=== PATIENT | male | born 1975 | race Caucasian/White ===

== ENCOUNTER → 2021-01-21 | Outpatient (CLI) | payer OTHER ==
[2021-01-21 11:18] LABS: HEMOGLOBIN 17.1 gm/dl (14.0-17.5); RED BLOOD COUNT 5.26 M/UL (4.20-5.50); WHITE BLOOD COUNT 8.6 K/UL (4.5-11.0)
[2021-01-21 11:56] LABS: BUN/CREATININE RATIO 18 (0-10)
[2021-01-22 12:08] LABS: VITAMIN D, 25-HYDROXY 40.3 ng/mL (30.0-100.0)
[2021-01-22 14:08] LABS: SARS COV-2 IGG AB Positive (Negative)
[2021-01-27 09:14] LABS: D001-IGE D PTERONYSSINUS <0.10 kU/L (Class 0); D002-IGE D FARINAE <0.10 kU/L (Class 0); E001-IGE CAT DANDER <0.10 kU/L (Class 0); E005-IGE DOG DANDER <0.10 kU/L (Class 0); E072-IGE MOUSE URINE <0.10 kU/L (Class 0); F001-IGE EGG WHITE <0.10 kU/L (Class 0); F002-IGE MILK 0.15 kU/L (Class 0/I); F003-IGE CODFISH <0.10 kU/L (Class 0); F004-IGE WHEAT <0.10 kU/L (Class 0); F010-IGE SESAME SEED <0.10 kU/L (Class 0); F013-IGE PEANUT <0.10 kU/L (Class 0); F014-IGE SOYBEAN <0.10 kU/L (Class 0); F017-IGE HAZELNUT (FILBERT) <0.10 kU/L (Class 0); F020-IGE ALMOND <0.10 kU/L (Class 0); F024-IGE SHRIMP <0.10 kU/L (Class 0); F040-IGE TUNA <0.10 kU/L (Class 0); F041-IGE SALMON <0.10 kU/L (Class 0); F202-IGE CASHEW NUT <0.10 kU/L (Class 0); F256-IGE WALNUT <0.10 kU/L (Class 0); F338-IGE SCALLOP <0.10 kU/L (Class 0); G002-IGE BERMUDA GRASS <0.10 kU/L (Class 0); G006-IGE TIMOTHY GRASS <0.10 kU/L (Class 0); IMMUNOGLOBULIN E, TOTAL 23 IU/mL (6-495); M001-IGE PENICILLIUM CHRYSOGEN <0.10 kU/L (Class 0); M002-IGE CLADOSPORIUM HERBARUM <0.10 kU/L (Class 0); M003-IGE ASPERGILLUS FUMIGATUS <0.10 kU/L (Class 0); M006-IGE ALTERNARIA ALTERNATA <0.10 kU/L (Class 0); T001-IGE MAPLE/BOX ELDER <0.10 kU/L (Class 0); T003-IGE COMMON SILVER BIRCH <0.10 kU/L (Class 0); T006-IGE CEDAR, MOUNTAIN <0.10 kU/L (Class 0); T007-IGE OAK, WHITE <0.10 kU/L (Class 0); T010-IGE WALNUT <0.10 kU/L (Class 0); T011-IGE MAPLE LEAF SYCAMORE <0.10 kU/L (Class 0); T014-IGE COTTONWOOD <0.10 kU/L (Class 0); T015-IGE ASH, WHITE <0.10 kU/L (Class 0); T070-IGE WHITE MULBERRY <0.10 kU/L (Class 0); W001-IGE RAGWEED, SHORT <0.10 kU/L (Class 0); W018-IGE SHEEP SORREL <0.10 kU/L (Class 0)
== END ==
LOC: LAB 10:35
PROVIDERS: Family Medicine
DX: Z12.5 Encounter for screening for malignant neoplasm of prostate (principal); R39.11 Hesitancy of micturition; R53.83 Other fatigue; E66.9 Obesity, unspecified; J30.9 Allergic rhinitis, unspecified; Z20.822 Contact with and (suspected) exposure to COVID-19
CPT/HCPCS: 36415; 80053; 80061; 81001; 82607; 82785; 84153; 84443; 85027; 86769; 87086

== ENCOUNTER 2021-11-14 09:53 | Emergency (ER) | payer SELFPAY ==
[2021-11-14] MEDS ORDERED: NORFLEX 100 MG100 MG PO (11:26)
[2021-11-14] MEDS ORDERED: MEDROL DOSEPAK 24 MG PO (11:26)
[2021-11-14] MEDS ORDERED: Voltaren Gel 1 % TOP (11:26)
== END 2021-11-14 11:35 | disposition home or self-care (01) ==
LOC: ER1 09:53
DX: S39.012A Strain of muscle, fascia and tendon of lower back, initial encounter (principal); Z88.0 Allergy status to penicillin; X50.9XXA Other and unspecified overexertion or strenuous movements or postures, initial encounter
CPT/HCPCS: 72100; 96372; 99283; J1100; J1885